=== PATIENT | male | born 1985 | race Two or more races ===

== ENCOUNTER 2025-04-03 22:32 | Emergency (ER) | payer OTHER, SELFPAY ==
[2025-04-03 22:33] VITALS: BMI 24.4
[2025-04-03 22:38] VITALS: BP 121/74; PULSE 73; RESP 18; TEMP 36.8; O2SAT 99
--- NOTE | 2025-04-03 22:54 | PD.EDWOUND ---
ED Wound/Laceration-RME/HPI General Chief Complaint: Wound/Laceration Stated Complaint: RIGHT HAND LACERATION Time Seen by Provider: 04/03/25 22:36 Arrival date/time: 04/03/25 22:32 RME / HPI RME / HPI narrative: 39-year-old male patient was brought in by family for evaluation regarding right hand laceration dorsal aspect. Patient was working putting cabinet, got caught with machine resulting into a 1 cm gaping laceration, dorsal aspect. Patient is able to bend and extend the fingers without any limitation. Denies any other injury. Tetanus vaccination is more than 10 years. Incident happened 5 hours prior to ER visit. Related Data Previous Rx's ?Medication ?Instructions ?Recorded cephalexin 500 mg capsule 500 mg PO BID #4 caps 04/22/22 hydrocodone 5 mg-acetaminophen 325 1 tab PO Q6H PRN pain #30 tabs 04/22/22 mg tablet cephalexin 500 mg capsule 500 mg PO Q8H 7 days #21 caps 04/03/25 ibuprofen 800 mg tablet 800 mg PO Q8H PRN pain #30 tabs 04/03/25 Allergies Allergy/AdvReac Type Severity Reaction Status Date / Time morphine Allergy Severe Rash Verified 09/02/22 11:58 Review of Systems Review of Systems Narrative Review of Systems: Review of system reviewed and within normal limits except mentioned in HPI ED Exam Narrative Physical exam: VITAL SIGNS: Reviewed. GENERAL APPEARANCE: Alert and interactive, follows commands, no acute distress, HEAD AND FACE: Non-traumatic. ENT: PERRL, pink conjunctivitis, eyelid no trauma, Mucous membrane moist. NECK: Supple, nontender, no nuchal rigidity. RECTAL: Deferred. GENITAL: Deferred. NEUROLOGICAL: Gross motor function intact sensory function intact, Appropriate for age. MUSCULOSKELETAL: low back nontender, full range of motion. EXTREMITIES: + 1 cm gaping laceration to the right hand dorsal aspect at the second metacarpal area, full range of motion. SKIN: Color pink, dry, no rash, no lacerations, no abrasions, no contusions. LYMPHATICS: Deferred. Course Quality Measures none Orders Category Date Time Status Ibuprofen Tab [Motrin Tab] Med 04/03/25 22:53 Once 800 mg PO X1 ONE TET,DIP/PERT AC (Adult)-Tdap [Boostrix Adult (Tdap) Med 04/03/25 22:53 Once Vacc] 0.5 ml IMI .ONCE ONE cephALEXin [Keflex] Med 04/03/25 22:53 Once 500 mg PO X1 ONE Vital Signs Vital signs: Vital Signs Temperature 98.2 F 04/03/25 22:38 Pulse Rate 73 04/03/25 22:38 Respiratory Rate 18 04/03/25 22:38 Blood Pressure 121/74 04/03/25 22:38 Pulse Oximetry (%) 99 04/03/25 22:38 Oxygen Delivery Method Room Air 04/03/25 22:38 PROCEDURES: Laceration Laceration 1: Site: hand Side (If applicable): right Size (cm): 1 Description: linear Depth: simple, single layer Local Anesthetic: lidocaine 1% Amount of anesthesia used (mL): 2 Pre-repair: wound explored, irrigated extensively and deep structures intact Skin layer closed with: nylon Suture size (cm): 5-0 Number of sutures: 3 Technique: simple, interrupted Wound / Laceration MDM Narrative MDM Narrative:: 39-year-old male patient was brought in by family for evaluation regarding right hand laceration dorsal aspect. Patient was working putting cabinet, got caught with machine resulting into a 1 cm gaping laceration, dorsal aspect. Patient is able to bend and extend the fingers without any limitation. Denies any other injury. Tetanus vaccination is more than 10 years. Incident happened 5 hours prior to ER visit. Reported suturing was done by me see procedure notes. Imaging is not needed at this time. Able to bend and extend the finger without any limitation. Patient received Keflex, Motrin, and Boostrix Patient appears nontoxic and hemodynamically stable .Decision to discharge the patient. The patient/family was given an opportunity to ask questions and understood their discharge instructions. Discharge instructions specifically included follow up provider and time frame, current and/or new medications and possible side effects, indications for sooner follow up or return to the emergency department, and the expected course of current diagnosis. Patient reports feeling better as well and giving evidence of significant clinical improvement, I believe patient is now a candidate for discharge. Patient data External records reviewed:: None Clinical information provided by:: patient Social determinants that could affect healthcare access:: none Patient has the following chronic illnesses:: None How is presenting disease/condition affected by chronic disease/condition?: no chronic disease Evaluation data The following diagnostics were reviewed and interpreted by me:: other (specify) (None) Lab and/or radiology exams considered but not ordered:: None Interpretation Summary: None Medications / Prescriptions Medications or Prescriptions considered but not ordered:: None Medication administrations:: Keflex, Motrin Consultations Consultation(s) initiated? (list below): No Diagnosis Wound Differential Diagnosis: laceration, abrasion and avulsion of skin Most likely diagnosis given after review of the tests above:: Hand laceration right Admission Indicated Admission indicated?: not indicated Admission Request Was there a request for admission?: No Disposition Plan Disposition Plan: Discharge Discharge Attestation Discharge Attestation: The patient was given an opportunity to ask questions and understood the discharge instructions. Discharge instructions specifically effects, indications for sooner follow up or return to the emergency department, and the expected course of current diagnosis. Patient condition: Stable Discharge Plan Plan Patient Disposition: HOME (Self Care) Discharge Disposition comment: Stable Prescriptions/Referrals Prescriptions/Med Rec: New cephalexin 500 mg capsule 500 mg PO Q8H 7 Days Qty: 21 0RF ibuprofen 800 mg tablet 800 mg PO Q8H PRN (Reason: pain) Qty: 30 0RF No Action hydrocodone-acetaminophen 5-325 mg tablet 1 tab PO Q6H MDD 6 PRN (Reason: pain) Qty: 30 0RF cephalexin 500 mg capsule 500 mg PO BID Qty: 4 0RF Problem List Clinical Impression: Hand laceration Patient/Caregiver Discharge Instructions Discharge Activity: activity as tolerated Education Materials: ED Laceration: All Closures Additional Instructions: Thank you for the opportunity for serving you today. You are stable for discharged . You are advised to: Follow-up with your Worker's Comp. in 1 to 2 days Return to ED for worsening of symptoms Increase oral fluids Take medication as prescribed Daily dressing with bacitracin as needed For removal of sutures in 7 to 10 days Print Language: Hebrew Stand Alone Forms: Shy Award Info., Patient Portal Info Letter JED/CHANELL Supervising Physician JED/CHANELL Supervising Physician: MD Kaila
[2025-04-03] MEDS: IBUPROFEN TAB 400 MG TABLET 800 MG PO (23:02)
[2025-04-03] MEDS: DIPHTH,PERTUSS(ACELL),TET VAC 0.5 ML SYR- ADULT IMi (23:05)
[2025-04-04 00:02] VITALS: RESP 18
== END 2025-04-04 00:03 | disposition home or self-care (01) ==
LOC: SERX 23:40
PROVIDERS: Emergency Provider Emergency Medicine; PCP Family Medicine
DX: S61.411A Laceration without foreign body of right hand, initial encounter (principal); W31.2XXA Contact with powered woodworking and forming machines, initial encounter; Y93.89 Activity, other specified; Y99.0 Civilian activity done for income or pay; Z23 Encounter for immunization
CPT/HCPCS: 12001; 90471; 90715; 99283; A9270

== ENCOUNTER 2025-04-10 10:49 | Emergency (ER) | payer OTHER, SELFPAY ==
[2025-04-10 10:50] VITALS: BMI 25.9
[2025-04-10 11:04] VITALS: BP 125/80; PULSE 65; RESP 18; TEMP 37.3; O2SAT 98
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
== END 2025-04-10 12:01 | disposition home or self-care (01) ==
PROVIDERS: Emergency Provider Nurse Practitioner Primary Care; PCP Family Medicine
DX: S61.411D Laceration without foreign body of right hand, subsequent encounter (principal); X58.XXXD Exposure to other specified factors, subsequent encounter
CPT/HCPCS: 99281